=== PATIENT | female | born 2000 | race Caucasian/White ===

== ENCOUNTER 2019-10-09 18:03 | Emergency (ER) | payer MEDICAID ==
[~2019-10-09] VITALS: Ht 144.8 cm; Wt 57.1 kg
[~2019-10-09 18:03] MED LIST: CLON0.2T10 PO; RISP3TAB24 PO; SERT25TA PO
[2019-10-09 18:07] VITALS: BP 129/73
--- NOTE | 2019-10-09 19:38 | NUR ---
URINE COLLECTED/SENT TO LAB. PT IN .
[2019-10-09 19:49] LABS: BASOPHILS # (AUTO) 0.03 x10^3/uL (0-0.3); BASOPHILS % (AUTO) 0 % (0-1); EOSINOPHILS # (AUTO) 0.04 x10^3/uL (0-0.8); EOSINOPHILS % (AUTO) 1 % (1-7); LYMPHOCYTES # (AUTO) 1.96 x10^3/uL (1-6.1); LYMPHOCYTES % (AUTO) 24 % (22-44); MD NO; MEAN CORPUSCULAR VOLUME 96.9 fL (80-100); MEAN PLATELET VOLUME 9.4 fL (7.4-10.4); MONOCYTES # (AUTO) 0.73 x10^3/uL (0-1.4); MONOCYTES % (AUTO) 9 % (2-9); NEUTROPHILS # (AUTO) 5.35 x10^3/uL (1.8-8.0); NEUTROPHILS % (AUTO) 66 % (42-75); PLATELET COUNT 281 x10^3/uL (130-400); RED BLOOD COUNT 4.38 x10^6/uL (3.82-5.3); RED CELL DISTRIBUTION WIDTH 13.6 % (9.6-15.2)
[2019-10-09 19:51] LABS: ANION GAP 8 mmol/L (5-15); CALCIUM 9.2 mg/dL (8.5-10.1); CHLORIDE 109 mmol/L (98-107); CREATININE 0.72 mg/dL (0.55-1.02)
[2019-10-09 20:00] LABS: MICROSCOPIC INDICATED
--- NOTE | 2019-10-09 20:24 | NUR ---
ALL RESULTS BACK, PT FOR RECHECK
--- NOTE | 2019-10-09 20:56 | NUR ---
Pt d/c'd to home care. Pt alert, oriented and in NAD. Pt educated on RX, home care, OTC's and follow-up. Pt VU. Pt ambulatory out of ER.
== END 2019-10-09 21:00 | disposition home or self-care (01) ==
LOC: ED 18:33
DX: N39.0 Urinary tract infection, site not specified (principal); R31.9 Hematuria, unspecified; R10.30 Lower abdominal pain, unspecified; Z90.49 Acquired absence of other specified parts of digestive tract
CPT/HCPCS: 36415; 76830; 80048; 81001; 82040; 84703; 85025; 87077; 87086; 87186; 99284